=== PATIENT | female | born 1985 | race Hispanic/Latino ===

== ENCOUNTER → 2020-06-04 | Outpatient (CLI) | payer SELFPAY ==
[~2020-06-04] MED LIST: IOPAMIDOL 370 MG/ML 200 ML INFUS..BTL INJ ONE; SODIUM CHLORIDE 0.9% 50ML 50 ML ONE
== END ==
LOC: EDBD 13:12 → CT 13:12
PROVIDERS: ATTEND Specialist
DX: R22.2 Localized swelling, mass and lump, trunk (principal)
CPT/HCPCS: 74177; 81025; Q9967